=== PATIENT | female | born 1965 | race Caucasian/White ===

== ENCOUNTER 2022-12-26 00:48 | Observation (INO) | payer BC, OTHER ==
[~2022-12-26] VITALS: Ht 154.9 cm; Wt 94.9 kg
[~2022-12-26 00:48] MED LIST: ALDACTONE25 MG PO; ALL DAY ALLERGY10 M3 PO; BENADRYL25 MG PO; CALCIUM 600 MG1 EAC7 PO; CLIMARA1 EACH TD; COMPAZINE25 MG PR; COREG25 MG PO; COZAAR50 MG PO; CRESTOR20 MG PO; CYANOCOBAL1000 MCG/M IM; CYCLOBENZAPRINE10 MG PO; DICYCLOMINE HCL20 MG PO; ESTRACE42.5 GM VAGINAL; HYDROCODON-ACE1 EA14 PO; IMITREX4 MG/0.5 M SUB-Q; LANTUS SOL100 UNIT/1 SUB-Q; NEURONTIN300 MG PO; NIFEDIPINE ER30 M1 PO; ONDANSETRON ODT8 MG PO; PROPRANOLOL HCL40 MG PO; PROTONIX40 MG PO; RAMELTEON8 MG PO; REGLAN5 MG PO; SPIRIVA18 MCG INH; TOPAMAX100 MG PO; XOPENEX HFA15 GM INH; ZANAFLEX4 MG PO
[2022-12-26 05:16] VITALS: BP 153/94
[2022-12-26 08:57] VITALS: BP 168/103
--- NOTE | 2022-12-26 14:27 | EKG ---
[facility] [address] [facility] [place], [place] [address] Signed Sinus tachycardia Possible Left atrial enlargement Borderline ECG No previous ECGs available Confirmed by GINGER GIRARD MD ([id number]) on 12/26/2022 2:26:58 PM Electronically Signed By: GINGER GIRARD 12/26/22 1427 PATIENT NAME: ALEX MCKOYFERNANDO Electrocardiogram DATE OF : 65 PHYSICIAN: GINGER GIRARD REPORT #: [id number] REPORT IS CONFIDENTIAL AND NOT TO BE RELEASED WITHOUT AUTHORIZATION
[2022-12-26 14:53] VITALS: BP 188/117
[2022-12-26 18:30] VITALS: BP 200/133
[2022-12-26 19:50] VITALS: BP 195/136
[2022-12-27 01:24] VITALS: BP 156/94
[2022-12-27 04:41] VITALS: BP 156/78
[2022-12-27 09:18] VITALS: BP 185/125
[2022-12-27 10:00] VITALS: BP 179/107
[2022-12-27] MEDS ORDERED: HYDROCODON-ACE1 EA11 PO (11:22)
== END 2022-12-27 12:45 | disposition home or self-care (01) ==
LOC: ED 00:48 → MS 00:51
PROVIDERS: ADMIT Internal Medicine; ATTEND Internal Medicine
DX: L03.114 Cellulitis of left upper limb (principal); E11.9 Type 2 diabetes mellitus without complications; J45.909 Unspecified asthma, uncomplicated; Z88.8 Allergy status to other drugs, medicaments and biological substances; Z88.7 Allergy status to serum and vaccine; Z88.6 Allergy status to analgesic agent; Z91.018 Allergy to other foods; Z88.0 Allergy status to penicillin; Z88.1 Allergy status to other antibiotic agents; Z79.4 Long term (current) use of insulin
CPT/HCPCS: 36415; 80048; 80053; 81001; 83605; 83690; 83735; 85025; 87040; 93005; 93010; J0780; J1200; J1335; J1815; J2060; J2270; J2405; J2765; J7121

== ENCOUNTER 2023-01-18 08:30 | Day surgery (SDC) | payer OTHER ==
[2023-01-15 09:49] VITALS: BP 109/71
[~2023-01-18] VITALS: Ht 154.9 cm; Wt 89.0 kg
[~2023-01-18 08:30] MED LIST changes: +HYDROCODON-ACE1 EA11 PO
[2023-01-18 08:43] VITALS: BP 155/92
[2023-01-18 11:35] VITALS: BP 156/102
--- NOTE | 2023-01-18 11:39 | NUR ---
RETURNED FROM PACU NEEDED TO VOID AMB TO BR VOIDS QS. FAMILY IN ROOM TALKING. PT MOVING AROUND WELL. LAUGHING.
--- NOTE | 2023-01-18 11:52 | NUR ---
01/18/23 1152 Sheets,Heydi 1109 PT ARRIVED TO PACU AND STARTED TALKING TO RN. PT SITTING IN HIGH FOWLERS AND YOLA PAIN. RESP EVEN AND UNLABORED. CBG 91 PER PT OWN CBG MONITOR, ACCOUNTS RECEIVABLE ANALYST AWARE. 1111 O2 REMOVED. 1115 XRAY AT BEDSIDE AND PT ABLE TO FOLLOW COMMANDS AND MD LOOKED AT XRAY. MD TALKED TO PT AND ALL QUESTIONS ANSWERED. 1120 PT REPORTS THE NEED TO VOID. 1125 PT RETURNED TO DS AND PT UP TO BATHROOM WITH DS RN. PT AT BEDSIDE AND TALKED TO MD. REPORT TO DS RN.
--- NOTE | 2023-01-18 12:10 | NUR ---
REPORTS PAIN 10/10 REQUESTS PAIN MED AND GIVEN HAS TAKEN 200 MLS APPLE JUICE.
[2023-01-18 12:25] VITALS: BP 162/92
--- NOTE | 2023-01-18 13:07 | NUR ---
1225 C/O OF INCREASING PAIN 0.2 HYDROMORPHONE GIVEN PRIOR TO IV BEING DCD. 1230 STATES PAIN MUCH BETTER HYDROCODONE WITH START TO WORK. WANTS TO GET DRESSED.
--- NOTE | 2023-01-21 06:53 | OR ---
[facility] [address] [place], [place] [address] Signed DATE OF OPERATION: 01/18/2023 SURGEON: Viola Jon MD PREOPERATIVE DIAGNOSES: 1. Diabetic gastroparesis, awaiting gastric bypass. 2. Lack of peripheral IV access. POSTOPERATIVE DIAGNOSES: 1. Diabetic gastroparesis, awaiting gastric bypass. 2. Lack of peripheral IV access. PROCEDURES: 1. Placement of right IJ port catheter. 2. Physician-directed ultrasound. 3. Physician-directed fluoroscopy. ESTIMATED BLOOD LOSS: None. INDICATIONS: Hoa is a 57-year-old obese diabetic female with rather significant gastroparesis. She has been in multiple hospitals over multiple weeks. She was just getting ready to have her gastric bypass surgery in [place]. Her surgeon was overseas, and she has now moved to our area because of her 's employment. She has terrible peripheral IV access. In fact, our nurses spend enormous amount of time with the ultrasound, and finally put a small IV in the base of her thumb by her hand. She has had multiple triple-lumen catheters and she said it has been terrible experience. She has been asked to see me as a local general surgeon to have placement of [id number]. She is headed back to the [facility] here shortly after her gastric bypass surgery. In the office, I met with Fernando and her . Her explained that his first of cancer and he is very familiar with [id number]. They have been online reading and made themselves very familiar as a couple. They understand there is risk including, but not limited to bleeding, infection, scarring, change in contour of the skin as well as pneumothorax requiring chest tube placement as well as catheter embolization requiring retrieval. They had expressed understanding and wished to proceed. DESCRIPTION OF PROCEDURE: Fernando was taken into the operating room and placed in Trendelenburg position under Electronically Signed By: VIOLA JON MD 01/21/23 0653 PATIENT NAME: FERNANDO MALCOLM OPERATIVE REPORT DATE OF : 65 REPORT #: [id number] PHYSICIAN: VIOLA JON MD PCP: NO PRIMARY CARE PHYSICIAN REPORT IS CONFIDENTIAL AND NOT TO BE RELEASED WITHOUT AUTHORIZATION [facility] [address] [place] [id number] Signed general LMA anesthesia. She was given preoperative antibiotics along with subcutaneous heparin. She had been prepped and draped in the usual sterile fashion. We used ultrasound to find the right carotid artery in the internal jugular vein. We passed our needle under direct visualization into the vein and then we passed the wire under direct visualization without difficulty. We then checked the position of the wire with our fluoroscopy unit. We then injected local anesthetic on her chest wall and side of her neck. We created a pocket on her right chest wall just below the clavicle with the help of an oblique incision. We then passed our dilator over the wire and checked the position with the help of the fluoroscopy unit. We then passed the catheter into position at 18 cm high on her neck. We used our tunnel to bring the catheter placed on the catheter with the collar in place. It was able to flush and draw quite readily with the help of injectable saline. We checked the full length of the catheter with the fluoroscopy unit and felt it was in good position. We then filled the catheter with concentrated heparin. The port was held in place on the chest wall with interrupted Prolene sutures. The dermis was reapproximated with 3-0 subcuticular Monocryl sutures. A 5-0 Monocryl suture was used to bring the dermis together on the small incision on her neck. We used fast-absorbing plain gut 5-0 suture to close the skin edges. Dry gauze and tape were applied. She was awakened from anesthesia, extubated in the OR, and taken to the recovery room in stable condition. Viola Jon MD ALB/MODL /[id number] cc: Patient Chart Viola Jon MD Copies: VIOLA JON MD ~ Electronically Signed By: VIOLA JON MD 01/21/23 0653 PATIENT NAME: FERNANDO MALCOLM OPERATIVE REPORT DATE OF : 65 REPORT #: [id number] PHYSICIAN: VIOLA JON MD PCP: NO PRIMARY CARE PHYSICIAN REPORT IS CONFIDENTIAL AND NOT TO BE RELEASED WITHOUT AUTHORIZATION
== END 2023-01-18 12:40 | disposition home or self-care (01) ==
LOC: DS 08:30
PROVIDERS: ATTEND Colon & Rectal Surgery
PROC: 02HV33Z Insertion of Infusion Device into Superior Vena Cava, Percutaneous Approach (ICD-10-PCS; 2023-01-18)
PROC: 0JH60WZ Insertion of Totally Implantable Vascular Access Device into Chest Subcutaneous Tissue and Fascia, Open Approach (ICD-10-PCS; principal; 2023-01-18 10:30)
DX: Z45.2 Encounter for adjustment and management of vascular access device (principal); E11.43 Type 2 diabetes mellitus with diabetic autonomic (poly)neuropathy; K31.84 Gastroparesis; E66.9 Obesity, unspecified; I10 Essential (primary) hypertension; J45.909 Unspecified asthma, uncomplicated; Z88.0 Allergy status to penicillin; Z88.2 Allergy status to sulfonamides; Z88.8 Allergy status to other drugs, medicaments and biological substances; Z79.4 Long term (current) use of insulin; K21.9 Gastro-esophageal reflux disease without esophagitis; Z68.37 Body mass index [BMI] 37.0-37.9, adult
CPT/HCPCS: 00532; 71045; 77001; C1788; J1170; J1644; J2250; J2405; J2704; J2765; J3010; J7121